=== PATIENT | female | born 1950 | race Caucasian/White ===

== ENCOUNTER 2016-12-15 19:57 | Emergency (ER) | payer SELFPAY ==
[~2016-12-15] VITALS: Ht 154.9 cm; Wt 73.0 kg
[2016-12-15] MEDS ORDERED: INSREG SQ (20:05)
[2016-12-15] MEDS ORDERED: INSLAN SQ (20:05)
[2016-12-15 20:11] LABS: GLUCOSE,POINT OF CARE 173 MG/DL (70-110)
[2016-12-15] MEDS ORDERED: HYDROCODONE/ACETAMINOPHEN 5-325 MG TABLET PO ONE (21:30)
[2016-12-15 21:54] VITALS: BP 144/79
== END 2016-12-15 21:55 | disposition home or self-care (01) ==
LOC: EMS 20:00
DX: S49.91XA Unspecified injury of right shoulder and upper arm, initial encounter (principal); R19.00 Intra-abdominal and pelvic swelling, mass and lump, unspecified site; E11.9 Type 2 diabetes mellitus without complications; I10 Essential (primary) hypertension; F17.210 Nicotine dependence, cigarettes, uncomplicated; Z79.4 Long term (current) use of insulin; W19.XXXA Unspecified fall, initial encounter; Y93.89 Activity, other specified; Y92.89 Other specified places as the place of occurrence of the external cause; Y99.8 Other external cause status
CPT/HCPCS: 82962; 99282